=== PATIENT | male | born 1965 | race Caucasian/White ===

== ENCOUNTER 2018-07-16 11:32 | Emergency (ER) | payer OTHER ==
[~2018-07-16] VITALS: Ht 170.2 cm; Wt 142.9 kg
--- OUTSIDE RECORDS SUMMARY | ~2018-07-16 | XMS | Clinical Summary ---
Demographics + + + | Address | [address] | | | [place] [address] | + + + | Home Phone | | + + + | Preferred Language | Unknown | + + + | Marital Status | | + + + | Congregation Affiliation | Unknown | + + + | Race | Unknown | + + + | Ethnic Group | Unknown | + + + Author + + + | Author | [facility] | + + + | Organization | [facility] | + + + | Address | Unknown | + + + | Phone | Unavailable | + + + Support + + +---------+ + | Name | Relationship | Address | Phone | + + +---------+ + | Liliana Cherry | ECON | Unknown | | + + +---------+ + Care Team Providers + +------+ + | Care Digital Content Coordinator Name | Role | Phone | + +------+ + | Dr. Mali | PP | Unavailable | + +------+ + Allergies Not on File Current Medications Not on file Active Problems Not on file Social History + +-------+ +--------+------+ | Tobacco Use | Types | Packs/Day | Years | Date | | | | | Used | | + +-------+ +--------+------+ | Never Assessed | | | | | + +-------+ +--------+------+ + + + | Sex Assigned at | Date Recorded | | | | + + + | Not on file | | + + + Plan of Treatment Not on file Results Not on filefrom Last 3 Months"
--- OUTSIDE RECORDS SUMMARY | ~2018-07-16 | XMS | Clinical Summary ---
Demographics + + + | Address | [address] | | | [place] [address] | + + + | Home Phone | | + + + | Preferred Language | Unknown | + + + | Marital Status | | + + + | Restorationist Affiliation | Unknown | + + + | Race | Unknown | + + + | Ethnic Group | Unknown | + + + Author + + + | Author | [facility] | + + + | Organization | [facility] | + + + | Address | Unknown | + + + | Phone | Unavailable | + + + Support + + +---------+ + | Name | Relationship | Address | Phone | + + +---------+ + | Liliana Cherry | ECON | Unknown | | + + +---------+ + Care Team Providers + +------+ + | Care Nurse Plastics Name | Role | Phone | + [...]
[~2018-07-16 11:32] MED LIST: LISINOPRIL2.5 MG PO
[2018-07-16] MEDS ORDERED: VITAMIN D250000 UNIT PO (11:51)
[2018-07-16] MEDS ORDERED: LOSARTAN-HCTZ1 EACH PO (11:51)
[2018-07-16] MEDS ORDERED: LOSARTAN POTASS25 MG PO (11:51)
== END 2018-07-16 14:09 | disposition home or self-care (01) ==
LOC: ED 11:32
DX: F10.10 Alcohol abuse, uncomplicated (principal); R61 Generalized hyperhidrosis; R53.1 Weakness; I10 Essential (primary) hypertension; F17.200 Nicotine dependence, unspecified, uncomplicated; Z79.899 Other long term (current) drug therapy
CPT/HCPCS: 80053; 83735; 85025; 96360; 99283-25; J7030

== ENCOUNTER 2022-07-14 09:27 | Emergency (ER) | payer OTHER ==
[~2022-07-14] VITALS: Ht 170.2 cm; Wt 158.8 kg
[~2022-07-14 09:27] MED LIST changes: +DAILY MULTIVIT1 EAC3 PO; +LOSARTAN POTASS25 MG PO; +LOSARTAN-HCTZ1 EACH PO; +VITAMIN D250000 UNIT PO; +VITAMIN D350 MCG PO
== END 2022-07-14 19:23 | disposition home or self-care (01) ==
LOC: ED 09:27
DX: K59.00 Constipation, unspecified (principal); I10 Essential (primary) hypertension; F17.200 Nicotine dependence, unspecified, uncomplicated; Z79.899 Other long term (current) drug therapy
CPT/HCPCS: 96372; 99283; J1885; J2212

== ENCOUNTER 2025-03-01 11:28 | Emergency (ER) | payer OTHER ==
[~2025-03-01] VITALS: Ht 170.2 cm; Wt 134.9 kg
[2025-03-01] MEDS ORDERED: DIPHTH,PERTUSS(ACELL),TET VAC 0.5 ML SYRINGE IM ONE (11:45)
[2025-03-01 13:38] VITALS: BP 139/77
== END 2025-03-01 13:41 | disposition home or self-care (01) ==
LOC: ED 11:28
DX: S61.012A Laceration without foreign body of left thumb without damage to nail, initial encounter (principal); I10 Essential (primary) hypertension; F17.200 Nicotine dependence, unspecified, uncomplicated; W31.89XA Contact with other specified machinery, initial encounter; Z79.899 Other long term (current) drug therapy
CPT/HCPCS: 12002; 73130; 90471; 90715; 99283-25